=== PATIENT | male | born 1975 | race Caucasian/White ===

== ENCOUNTER 2016-04-18 22:11 | Emergency (ER) | payer OTHER ==
[2016-04-18] MEDS ORDERED: NO HOME MEDICATION XX (22:15)
[2016-04-18] MEDS ORDERED: NORCO 5-325 TA1 EACH PO (23:30)
== END 2016-04-19 00:16 ==
LOC: EDMED 22:11
PROC: 0HQGXZZ Repair Left Hand Skin, External Approach (ICD-10-PCS; principal; 2016-04-18)
DX: S67.193A Crushing injury of left middle finger, initial encounter (principal); S67.191A Crushing injury of left index finger, initial encounter; W31.89XA Contact with other specified machinery, initial encounter; Y92.69 Other specified industrial and construction area as the place of occurrence of the external cause; Y99.0 Civilian activity done for income or pay